=== PATIENT | female | born 1990 | race Caucasian/White ===

== ENCOUNTER 2017-06-20 10:05 | Emergency (ER) | payer MEDICAID ==
[2017-06-20 10:32] VITALS: BMI 32.4
[2017-06-20 11:20] LABS: SQUAMOUS EPITHIAL 24 /hpf (0-5); URINE BACTERIA OCC (<OCC); URINE BILIRUBIN NEGATIVE (NEGATIVE); URINE BLOOD NEGATIVE (NEGATIVE); URINE CALCIUM OXALATE CRYSTALS MOD /hpf (<OCC); URINE CLARITY Hazy (Clear); URINE COLOR Amber (YELLOW); URINE GLUCOSE (UA) NORMAL (Normal); URINE LEUKOCYTE ESTERASE 3+ Leu/uL (Negative); URINE PROTEIN 1+ mg/dL (NEGATIVE)
--- NOTE | 2017-06-20 13:17 | OBHP ---
Datetime: 06/20/2017 10:20 IP Chief Complaint Other: pelvic pressure Admit Comment, IP Provider: CC: Abdominal Pain. This patient is a 26 year old @ 30w5d who presented complaining of worsening intermittent lower sharp/pressure-like, radiating abdominal pain x 3 weeks. Patient states that 12 days ago she w ent to [facility] [place] similar symptoms and recieved a betamethasone shot. Patient rates the pain a 7/10 a nd states the pain gets worse when she is on her feet. She states the pain radiates to her right back . She denies anything that relieves the pain. She has tried a a warm rag to relieve her pain but was unsuccesfull. She denies any uterine contractions. She endorses movement. She denies any bloo d/discharge from the vagina. Patient denies any fevers, chills, chest pain or SOB. She does admit t o nausea but has not vomited. He bowel movements have been normal. She denies any dysuria or hematur ia. She also denies any increased urinary frequency but states that she urinates about every 2 hours which she states is normal for her. ROS: As stated above. PMHx: Denies PSHx: Denies Allergies: Denies Social Hx: Denies Tobacco, alochol, or illlicit drug use. Works at [employer] FamHx: Diabetes (Mother and Grandmother) Meds: Vitamins ObHx: 1. 2006, Induced . 2. 2013, Born @ 41 week. Vaginal Delivery. No complications 3. Current. GynHx: FDLMP: Approximately 11/22/2016 EDILMA-August 29 by [facility] and August 27 by [facility]: 15 x Regular x 5-6 days STD Hx: Denies Last Pap March 2017. Denies Hx of Abnormal PAP Vitals: BP-112/75, Pulse-85 Labs: UA PENDING Gen: AAOx3 NAD Cardio: +S1, S2, No murmers Pulm: CTA Abd: Gravid, Non-Tender : Cervix is closed/Non-Tender. Positive Right CVA Tenderness Ext: +2 Capillary refill, No Pedal Edema A/P. 26 year old at 31 weeks and 5 days presents for evaluation of lower abdominal pain. 1. Afebrile/Stable 2. TOCO/FHM 3. UA Patient seen and discussed with Attending (Dr. Celeste) Damien Reid, PGY1 ua 3=le plan dc home ptl given po hyration f/u in office on sunday Pelvic Type - PN: Adequate Extremities - PN: Normal Abdomen - PN: Normal Back - PN: Normal Breast - PN: Normal Lungs - PN: Normal Heart - PN: Normal Thyroid - PN: Normal Neurologic - PN: Normal HEENT - PN: Normal General - PN: Normal FHR - Baseline A Provider: 130 Contraction Comments Provider: none IP Hx Assessment: The History has been Reviewed and is Current EGA AdmitDate IP: 30.0 Vital Signs Provider: Reviewed; Within Normal Limits IP Chief Complaint: Signs/symptoms UTI NICHD Variability Prov Fetus A: Moderate 6-25bpm NICHD Accel Fetus A IP Provider: [id number] FHR Category Provider Fetus A: Category I Dilatation, Provider: 0 Effacement, Provider: 0 Station, Provider: -3 Genitourinary Exam: Normal DTRs - PN: Normal
--- NOTE | 2017-06-20 13:19 | OBDCSUM ---
Datetime: 06/20/2017 13:16 Discharged to, Provider: Home Discharged to, Provider: Home Follow up at, Provider: sunday Disch Instr Activity: Normal activity Disch Instr Diet: Regular Discharge Time: 06/20/2017 13:17 Follow up in weeks, Provider: offoce Disch Referrals: None Disch Activity Restrictions: No exercising Discharge Comment, Provider: macrobid 100 mg bid po hy cont pnv ptl given Discharge Diagnosis Prov Other: 33weekuti nst
[2017-06-21 13:44] VITALS: BP 120/83; PULSE 87
== END 2017-06-20 13:16 | disposition home or self-care (01) ==
LOC: C.EROB 10:05
DX: O26.893 Other specified pregnancy related conditions, third trimester (principal); Z3A.31 31 weeks gestation of pregnancy; R10.30 Lower abdominal pain, unspecified